=== PATIENT | female | born 1965 | race Caucasian/White ===

== ENCOUNTER 2017-09-13 03:57 | Emergency (ER) | payer OTHER ==
[2017-09-13 04:05] VITALS: BP 111/54
[2017-09-13] MEDS ORDERED: BESIFLOXACIN HCL 0.6% OPH SUSP 5 ML BOTTLE OD ONE (04:28)
[2017-09-13] MEDS ORDERED: HYDROCODONE/ACETAMINOPHEN 5-325 MG (6 TAB/ER DISP) PO PRN (04:37)
--- NOTE | 2017-09-13 04:38 | ER Document Report ---
ED Eye Complaint - General Chief Complaint: Redness of Eye Stated Complaint: EYE PAIN Time Seen by Provider: 09/13/17 04:09 Notes: Patient is a 52 year old female that comes to the ED for chief complaint of right eye pain. Pain started last night, she states that she feels like there is something stuck in her eye, she was wearing contacts but she removed these, she states she irrigated her eye with saline but still feels the irritation. She denies discolored discharge, loss of vision, or any other current symptoms. She denies trauma to the eye. She is currently wearing glasses. TRAVEL OUTSIDE OF THE [place] IN LAST 30 DAYS: No - Related Data Allergies/Adverse Reactions: Penicillins Allergy (Verified 09/13/17 03:59) Past Medical History - General Information source: Patient - Social History Smoking Status: Never Smoker Frequency of alcohol use: None Drug Abuse: None Lives with: Family Family History: Reviewed & Not Pertinent Patient has suicidal ideation: No Patient has homicidal ideation: No - Medical History Medical History: Negative Renal/ Medical History: Denies: Hx Peritoneal Dialysis - Immunizations Immunizations up to date: Yes Hx Diphtheria, Pertussis, Tetanus Vaccination: Yes Review of Systems - Review of Systems Constitutional: No symptoms reported EENT: See HPI Cardiovascular: No symptoms reported Respiratory: No symptoms reported Gastrointestinal: No symptoms reported Genitourinary: No symptoms reported Female Genitourinary: No symptoms reported Musculoskeletal: No symptoms reported Skin: No symptoms reported Hematologic/Lymphatic: No symptoms reported Neurological/Psychological: No symptoms reported Physical Exam - Vital signs Vitals: Temp Pulse Resp BP Pulse Ox 97.7 F 66 20 111/54 L 99 09/13/17 04:04 09/13/17 04:04 09/13/17 04:04 09/13/17 04:04 09/13/17 04:04 Interpretation: Normal - General General appearance: Anxious In distress: Mild - Patient dabbing at her right eye and appears to be in pain - HEENT Head: Normocephalic, Atraumatic Eyes: Normal Conjunctiva: Injected - Minimally injected. No: Purulent discharge Cornea: Corneal abrasion, Flourescein stain uptake, Superficial foreign body. No: Corneal ulcer, Dendrite, Embedded foreign body Extraocular movements intact: Yes Eyelashes: Normal Pupils: PERRL Corrective lenses worn: Yes Nerve palsy: Yes Ears: Normal Nasal: Normal Mouth/Lips: Normal Mucous membranes: Normal Pharynx: Normal Neck: Normal - Respiratory Respiratory status: No respiratory distress Chest status: Nontender Breath sounds: Normal Chest palpation: Normal - Cardiovascular Rhythm: Regular Heart sounds: Normal auscultation Murmur: No - Abdominal Inspection: Normal Distension: No distension Bowel sounds: Normal Tenderness: Nontender Organomegaly: No organomegaly - Back Back: Normal, Nontender - Extremities General upper extremity: Normal inspection, Nontender, Normal strength, Normal temperature General lower extremity: Normal inspection, Nontender, Normal strength, Normal temperature - Neurological Neuro grossly intact: Yes Cognition: Normal Orientation: AAOx4 Nursery Coma Scale Eye Opening: Spontaneous Otis Coma Scale Verbal: Oriented Nursery Coma Scale Motor: Obeys Commands Otis Coma Scale Total: 15 Speech: Normal Motor strength normal: LUE, RUE, LLE, RLE Sensory: Normal - Skin Skin Temperature: Warm Skin Moisture: Dry Skin Color: Normal Course - Re-evaluation Re-evalutation: Small foreign body noted over the right cornea which was slightly mobile but staying in the eye, not embedded, visualized easily under magnification. This was removed using magnification and a Q-tip, afterwards I was examined carefully using slit-lamp, shows 2 small superficial corneal abrasions with no remaining foreign bodies, negative Dary sign, normal pupil, unremarkable examination otherwise. Patient treated with Besivance, referred to ophthalmology, provided with symptom management, discussed return precautions in detail, patient states understanding and agreement. - Vital Signs Vital signs: Temp Pulse Resp BP Pulse Ox 97.7 F 66 20 111/54 L 99 09/13/17 04:04 09/13/17 04:04 09/13/17 04:04 09/13/17 04:04 09/13/17 04:04 Discharge - Discharge Clinical Impression: Eye foreign body Qualifiers: Encounter type: initial encounter Laterality: right Qualified Code(s): T15.91XA - Foreign body on external eye, part unspecified, right eye, initial encounter Corneal abrasion Qualifiers: Encounter type: initial encounter Laterality: right Qualified Code(s): S05.01XA - Injury of conjunctiva and corneal abrasion without foreign body, right eye, initial encounter Condition: Stable Disposition: HOME, SELF-CARE Additional Instructions: You had a small foreign body in the eye which was removed. You also have two small corneal abrasions. Use the eyedrops provided as prescribed (1 drop into affected eye 3 times/day (4-12 hours apart) for 7 days), use the ketorolac drops for pain if needed. Do not wear contacts for a week. Follow-up with ophthalmology referral. Return if you worsen including severe pain, swelling, loss of vision, or any other concerning or worsening symptoms. Prescriptions: Ketorolac Tromethamine [Acular] 5 ml OP ASDIR PRN #1 drops PRN Reason: Forms: Return to Work Referrals: MARCIA PACHECO MD [ACTIVE STAFF] - 09/15/17
== END 2017-09-13 04:40 | disposition home or self-care (01) ==
LOC: ER 03:57
DX: T15.01XA Foreign body in cornea, right eye, initial encounter (principal); H57.11 Ocular pain, right eye; X58.XXXA Exposure to other specified factors, initial encounter; Z88.0 Allergy status to penicillin
CPT/HCPCS: 99282